=== PATIENT | female | born 1970 | race Caucasian/White ===

== ENCOUNTER → 2020-03-05 15:15 | Outpatient (BNVA) | payer OTHER, SELFPAY | PROVIDERS: Family Provider Internal Medicine; PCP Internal Medicine; Visit Provider Internal Medicine Rheumatology | DX: L40.50 Arthropathic psoriasis, unspecified (principal); Z79.899 Other long term (current) drug therapy; L40.0 Psoriasis vulgaris; R76.8 Other specified abnormal immunological findings in serum | CPT/HCPCS: 99214 ==

== ENCOUNTER 2021-02-19 11:42 | Outpatient (CLI) | payer OTHER, SELFPAY ==
[2021-02-19 13:34] LABS: Basophils % 0.3 %; Eosinophils # 0.1 10^3/uL (0.0-0.8); Eosinophils % 2.2 %; Hemoglobin 12.7 g/dL (11.5-15.3); Lymphocytes # 2.6 10^3/uL (0.8-4.8); Lymphocytes % 44.1 %; Mean Corpuscular HGB Conc 33.4 g/dL (30.0-36.0); Mean Corpuscular Hemoglobin 31.8 pg (28.0-34.0); Mean Corpuscular Volume 95.2 fL (81-99); Mean Platelet Volume 9.3 fL (7.4-10.4); Monocytes # 0.5 10^3/uL (0.2-0.9); Monocytes % 7.9 %; Neutrophils # 2.71 10^3/uL (1.8-7.7); Neutrophils % 45.3 %; Nucleated Red Blood Cells % 0 %; Platelet Count 186 10^3/cmm (130-400); Red Blood Count 3.99 10^6/uL (4.1-5.3); Red Cell Distribution Width 12.5 % (12.1-15.1)
[2021-02-19 13:54] LABS: Alanine Aminotransferase 99 U/L (0-33); Albumin Level 4.2 g/dL (3.5-5.2); Alkaline Phosphatase 36 IU/L (35-105); Aspartate Amino Transferase 82 U/L (0-32); C Reactive Protein 1.1 mg/L (0.0-4.9); Globulin 2.8 g/dL (1.3-4.6); Glomerular Filtration Rate 131.7 mL/min (90-130); Total Bilirubin 0.4 mg/dL (0.15-1.2)
[2021-02-20 14:32] LABS: Hepatitis B Virus DNA <10 NOT DETECTED IU/mL (NOT DETECTED); Hepatitis B Virus DNA PCR <1.00 NOT DETECTED Log IU/mL (NOT DETECTED)
== END 2021-02-19 11:43 | disposition home or self-care (01) ==
PROVIDERS: Visit Provider Internal Medicine Rheumatology
DX: L40.50 Arthropathic psoriasis, unspecified (principal); M19.90 Unspecified osteoarthritis, unspecified site; Z79.899 Other long term (current) drug therapy; Z11.59 Encounter for screening for other viral diseases
CPT/HCPCS: 36415; 80076; 82565; 85025; 86140; 87517

== ENCOUNTER → 2021-03-04 08:36 | Outpatient (BNVA) | payer OTHER, SELFPAY | PROVIDERS: PCP Internal Medicine; Visit Provider Internal Medicine Rheumatology | DX: L40.50 Arthropathic psoriasis, unspecified (principal); L40.0 Psoriasis vulgaris; R76.8 Other specified abnormal immunological findings in serum; Z79.899 Other long term (current) drug therapy; Z11.59 Encounter for screening for other viral diseases; R74.01 Elevation of levels of liver transaminase levels; Z71.89 Other specified counseling | CPT/HCPCS: 99214 ==

== ENCOUNTER 2021-04-22 11:03 | Outpatient (CLI) | payer OTHER, SELFPAY ==
[2021-04-22 12:15] LABS: Basophils % 0.4 %; Eosinophils # 0.2 10^3/uL (0.0-0.8); Eosinophils % 2.7 %; Hematocrit 37.5 % (37.0-47.0); Hemoglobin 12.4 g/dL (11.5-15.3); Lymphocytes # 2.5 10^3/uL (0.8-4.8); Lymphocytes % 45.1 %; Mean Corpuscular HGB Conc 33.1 g/dL (30.0-36.0); Mean Corpuscular Hemoglobin 32.3 pg (28.0-34.0); Mean Corpuscular Volume 97.7 fl (81-99); Mean Platelet Volume 9.3 fL (7.4-10.4); Monocytes # 0.5 10^3/uL (0.2-0.9); Monocytes % 8.5 %; Neutrophils # 2.36 10^3/uL (1.8-7.7); Neutrophils % 42.9 %; Nucleated Red Blood Cells % 0 %; Platelet Count 203 10^3/cmm (130-400); Red Blood Count 3.84 10^6/uL (4.1-5.3); Red Cell Distribution Width 12.2 % (12.1-15.1); White Blood Count 5.5 10^3/uL (4.0-10.0)
[2021-04-22 12:36] LABS: Alanine Aminotransferase 111 U/L (0-33); Albumin Level 4.2 g/dL (3.5-5.2); Alkaline Phosphatase 40 IU/L (35-105); Aspartate Amino Transferase 73 U/L (0-32); C Reactive Protein 2.7 mg/L (0.0-4.9); Globulin 3.3 g/dL (1.3-4.6); Glomerular Filtration Rate 131.7 mL/min (90-130); Total Bilirubin 0.2 mg/dL (0.15-1.2); Total Protein 7.5 g/dL (6.6-8.7)
[2021-04-22 13:07] LABS: Hepatitis B Surface AB < 3.5 (11.5-1000)
== END 2021-04-22 11:04 | disposition home or self-care (01) ==
LOC: LAB 11:07
PROVIDERS: PCP Internal Medicine; Visit Provider Internal Medicine Rheumatology
DX: L40.0 Psoriasis vulgaris (principal); L40.50 Arthropathic psoriasis, unspecified; R76.8 Other specified abnormal immunological findings in serum; Z79.899 Other long term (current) drug therapy; Z11.59 Encounter for screening for other viral diseases
CPT/HCPCS: 36415; 80076; 82565; 85025; 86140; 86706

== ENCOUNTER 2021-11-26 09:25 | Outpatient (CLI) | payer OTHER, SELFPAY ==
[2021-11-26 10:15] LABS: Basophils % 0.4 %; Eosinophils # 0.1 10^3/uL (0.0-0.8); Eosinophils % 2.3 %; Hematocrit 38.3 % (37.0-47.0); Hemoglobin 12.5 g/dL (11.5-15.3); Lymphocytes # 2.4 10^3/uL (0.8-4.8); Lymphocytes % 45.7 %; Mean Corpuscular HGB Conc 32.6 g/dL (30.0-36.0); Mean Corpuscular Hemoglobin 31.3 pg (28.0-34.0); Mean Platelet Volume 10.1 fL (7.4-10.4); Monocytes # 0.5 10^3/uL (0.2-0.9); Monocytes % 9.7 %; Neutrophils # 2.13 10^3/uL (1.8-7.7); Neutrophils % 41.5 %; Nucleated Red Blood Cells % 0.4 %; Platelet Count 217 10^3/cmm (130-400); Red Blood Count 3.99 10^6/uL (4.1-5.3); Red Cell Distribution Width 12.6 % (12.1-15.1); White Blood Count 5.1 10^3/uL (4.0-10.0)
[2021-11-26 10:35] LABS: Alanine Aminotransferase 56 U/L (0-33); Albumin Level 4.5 g/dL (3.5-5.2); Alkaline Phosphatase 38 IU/L (35-105); Aspartate Amino Transferase 58 U/L (0-32); Globulin 3.1 g/dL (1.3-4.6); Glomerular Filtration Rate 131.1 mL/min (90-130); Total Bilirubin 0.3 mg/dL (0.15-1.2); Total Protein 7.6 g/dL (6.6-8.7)
== END 2021-11-26 09:26 | disposition home or self-care (01) ==
PROVIDERS: PCP Internal Medicine; Visit Provider Internal Medicine Rheumatology
DX: L40.50 Arthropathic psoriasis, unspecified (principal); Z79.899 Other long term (current) drug therapy
CPT/HCPCS: 80076; 82565; 85025; 86140

== ENCOUNTER → 2022-07-07 08:04 | Outpatient (BNVA) | payer OTHER, SELFPAY | PROVIDERS: PCP Internal Medicine; Visit Provider Family Medicine | DX: Z76.89 Persons encountering health services in other specified circumstances (principal); I10 Essential (primary) hypertension; E78.2 Mixed hyperlipidemia; Z79.899 Other long term (current) drug therapy; L40.50 Arthropathic psoriasis, unspecified; L40.0 Psoriasis vulgaris; J45.909 Unspecified asthma, uncomplicated | CPT/HCPCS: 80053; 80061; 82043; 83036; 84443; 85025; 86480 ==

== ENCOUNTER → 2022-12-30 07:35 | Outpatient (BNVA) | payer OTHER, SELFPAY | PROVIDERS: PCP Family Medicine; Visit Provider Family Medicine | DX: E11.65 Type 2 diabetes mellitus with hyperglycemia (principal); E78.2 Mixed hyperlipidemia; I10 Essential (primary) hypertension | CPT/HCPCS: 80053; 80061; 82043; 83036 ==

== ENCOUNTER 2023-01-27 07:32 | Outpatient (CLI) | payer OTHER, SELFPAY ==
--- NOTE | 2023-01-27 07:35 | MM_ITS ---
WS: [id number] VIEWS: MLO and CC views both breasts. 3D digital tomosynthesis is also included in this exam. Comparison made with prior exam of 08/06/2015, 12/27/2017, 06/04/2019,. Findings: There was no sign of mass, architectural distortion or suspicious calcification in either breast. Th e breasts are heterogeneously dense, which may obscure small masses MM/[place] [id number] Impression: BI-RADS: 2-Benign finding FOLLOW-UP: 1 Year Follow-up This mammogram was also analyzed by the Computer Aided Detection System R2 Imag e Director Environmental.
== END 2023-01-27 07:33 | disposition home or self-care (01) ==
PROVIDERS: PCP Family Medicine; Visit Provider Family Medicine
DX: Z12.31 Encounter for screening mammogram for malignant neoplasm of breast (principal)
CPT/HCPCS: 77063; 77067

== ENCOUNTER → 2023-03-02 09:30 | Outpatient (BNVA) | payer OTHER, SELFPAY | PROVIDERS: PCP Family Medicine; Visit Provider Obstetrics & Gynecology | DX: Z00.00 Encounter for general adult medical examination without abnormal findings (principal) | CPT/HCPCS: 87624 ==

== ENCOUNTER → 2024-01-08 07:34 | Outpatient (BNVA) | payer OTHER, SELFPAY | PROVIDERS: PCP Family Medicine; Visit Provider Family Medicine | DX: E11.9 Type 2 diabetes mellitus without complications (principal); E11.65 Type 2 diabetes mellitus with hyperglycemia; I10 Essential (primary) hypertension; E78.2 Mixed hyperlipidemia | CPT/HCPCS: 80053; 80061; 82607; 83036; 84443 ==

== ENCOUNTER → 2024-01-28 10:51 | Outpatient (BNVA) | payer OTHER, SELFPAY | PROVIDERS: PCP Family Medicine; Visit Provider Emergency Medicine | DX: N39.0 Urinary tract infection, site not specified (principal) | CPT/HCPCS: 81000; 87077; 87086; 87184 ==

== ENCOUNTER 2024-08-25 13:31 | Emergency (ER) | payer OTHER, SELFPAY ==
[2024-08-25 13:31] VITALS: BP 147/98; PULSE 78; RESP 16; TEMP 36.7; O2SAT 98; BMI 31.9
--- NOTE | 2024-08-25 13:37 | XRR_ITS ---
PROCEDURE INFORMATION: Exam: XR Left Ankle Exam date and time: 08/25/2024 1:48 PM Age: 54 years old Clinical indication: Injury or trauma; Other: Lt ankle/foot pain; Patient HX: Lt ankle pain post fall; Obvious deformity; HX lt foot orif TECHNIQUE: Imaging protocol: Radiologic exam of the left ankle. Views: 3 or more views. COMPARISON: CR XR foot LT min 3V* [id number] 10/03/2018 8:20 AM FINDINGS: Bones/joints: There is a comminuted trimalleolar fracture dislocation left ankle. Comminuted oblique displaced fracture of the distal shaft of the fibula. There is a comminuted displaced fracture of the medial malleolus, there is a comminuted displaced longitudinal fracture of the posterior malleolus. There mammography is anterior subluxation of the tibia in relation to the talus. A bone spur is present at the inferior calcaneus. malleolus. Soft tissues: Unremarkable XR/XR ankle LT min 3V* [id number] IMPRESSION: 1. Comminuted trimalleolar fracture dislocation 2. Orthopedic hardware present in the 1st metatarsal 3. Unremarkable soft tissues malleolus.
--- NOTE | 2024-08-25 13:40 | XRR_ITS ---
PROCEDURE INFORMATION: Exam: XR Left Foot Exam date and time: 08/25/2024 1:49 PM Age: 54 years old Clinical indication: Injury or trauma; Prior surgery; Surgery date: 6+ months; Patient HX: Lt ankle pain post fall; Obvious deformity; HX lt foot orif TECHNIQUE: Imaging protocol: Radiologic exam of the left foot. Views: 3 or more views. COMPARISON: CR XR foot LT min 3V* [id number] 10/03/2018 8:20 AM FINDINGS: Bones/joints: There are transverse displaced fractures proximal shaft 2nd and 3rd metatarsal. There is ORIF with metallic plate and screws in the distal 1st metatarsal and proximal phalanx of the great toe. Transverse hairline fracture proximal shaft 4th metatarsal Chronic osteoarthritis is seen with the narrowing of the metatarsophalangeal articulations 2nd through 5th digits. There is trimalleolar fracture dislocation of the ankle. Bone spur inferior calcaneus. Soft tissues: Soft tissue edema is seen in the anterior aspect of the ankle XR/XR foot LT min 3V* [id number] IMPRESSION: 1. Transverse displaced fracture proximal shaft 2nd and 3rd metatarsal. 2. ORIF distal 1st metatarsal and great toe. 3. Osteoarthritis of the distal aspect of the foot 4. Transverse hairline fracture proximal shaft 4th metatarsal. 5. Trimalleolar comminuted fracture dislocation of the ankle
--- NOTE | 2024-08-25 13:42 | W.ED.EXTPRO ---
HPI - Extremity Problem General: Chief complaint: Extremity Injury, Lower Stated complaint: Lft ankle injury Time Seen by Provider: 08/25/24 13:36 Source: patient Mode of arrival: ambulatory Limitations: no limitations History of Present Illness: 54-year-old female states she had slipped in the mud just prior to arrival twisted her left ankle as foot and ankle pain in that left side. She rates her pain a 6 out of 10 has had a hard time bearing weight denies any pain denies any other injuries with the fall states she has had multiple foot surgeries in the past. Associated symptoms: Deny chest pain, fever(s) or rash Related Data Home Medications Medication Instructions Recorded Confirmed adalimumab 40 mg/0.8 mL 40 mg SUBCUT Q14D 08/25/24 08/25/24 subcutaneous pen kit (Humira Pen) aspirin 81 mg tablet,delayed 81 mg PO DAILY 08/25/24 08/25/24 release atorvastatin 40 mg tablet 40 mg PO DAILY 08/25/24 08/25/24 empagliflozin 25 mg tablet 25 mg PO DAILY 08/25/24 08/25/24 (Jardiance) losartan 25 mg tablet 25 mg PO DAILY 08/25/24 08/25/24 metformin 1,000 mg tablet 1,000 mg PO BID 08/25/24 08/25/24 Previous Rx's Medication Instructions Recorded diabetic supplies, miscellan. #100 ea 01/09/24 tirzepatide 5 mg/0.5 mL 5 mg (0.5 mL) SUBCUT .q7days #2 mL 06/25/24 subcutaneous pen injector (Mounjaro) Allergies Allergy/AdvReac Type Severity Reaction Status Date / Time No Known Allergies Allergy Verified 08/25/24 13:37 Review of Systems Const: Denies: fever(s), chills, body aches or change in appetite ENMT: Denies: throat pain or dental pain Card: Denies: chest pain Resp: Denies: dyspnea GI: Denies: abdominal pain, nausea, vomiting or diarrhea Musc: Reports: extremity pain; Denies: neck pain or back pain Skin/Breast: Denies: rash Neuro: Denies: headache(s) PFSH ED PFSH: Medical History Immunization counseling High risk medication use Hepatitis B core antibody positive Psoriatic arthritis Plaque psoriasis In remission Diabetes mellitus Surgical History History of tonsillectomy History of tubal ligation Family History Other Adopted Social History Smoking and tobacco/nicotine status: never used tobacco/nicotine Second hand smoke exposure: No Alcohol intake: never Substance/Drug Use: never Adopted: Yes Caregiver/support person: No Lives independently: Yes Household members: spouse Current occupational status: employed Current occupational exposures/hazards: No Pets and animals: No Do you think of yourself as: Straight/Heterosexual Current gender identity: Female Female Reproductive History: Date of last menstrual period: 08/19/24 Spontaneous abortions: No Physical Exam Const: COMMON NORMALS: no acute distress, patient oriented x3 and healthy appearing HENMT: COMMON NORMALS: normocephalic and atraumatic HEAD & SCALP: normocephalic and atraumatic Eye: COMMON NORMALS: conjunctivae normal CONJUNCTIVA: Yes conjunctivae normal Neck/C-Spine: COMMON NORMALS: full ROM and supple Chest: COMMONS NORMALS: normal inspection of the chest Resp: COMMON NORMALS: normal respiratory effort Cardio: COMMON NORMALS: regular rate RATE: regular rate Extremity: COMMON NORMALS: full ROM NARRATIVE EXTREMITY EXAM: Tenderness swelling noted to left ankle Neuro: COMMON NORMALS: patient oriented x3, moves all extremities and no focal motor deficits Psych: COMMON NORMALS: mental status grossly normal, Normal thought process present and cooperative THOUGHT PROCESS: Normal thought process present Skin: COMMON NORMALS: no rashes or lesions noted and no wounds GENERAL SKIN EXAM: no rashes or lesions noted Procedures Orthopedic Fracture Reduction Fracture #1: Time Out Performed: Yes Side: left Fracture Reduction Location: other (ankle) Analgesia: procedural sedation Technique: direct manipulation Post Reduction X-rays Demonstrate: anatomical reduction Post-reduction neuro exam: intact Post-reduction vascular exam: intact Splint Applied: Yes Patient Tolerated Procedure: well Procedural Sedation Indication: fracture/dislocation reduction ASA Class: I Time of Last PO Intake: 10:00 Preparation: quality assurance monitor body applied and pulse oximeter IV Propofol dose (mg): 80 Course Vital Signs: Vital signs: Vital Signs Temperature 98.1 F 08/25/24 13:31 Pulse Rate 68 12/29/24 14:05 Respiratory Rate 16 08/25/24 14:05 Blood Pressure 160/88 08/25/24 14:05 Pulse Oximetry 99 08/25/24 14:05 Oxygen Delivery Me thod Room Air 08/25/24 13:31 MDM - Extremity (Nontraumatic) Medical Decision Making Patient presents here with ankle fracture did sedate her and relocate the fracture she is in a splint she is to be nonweightbearing is crutches we will get her follow-up with podiatry. Medical Records I reviewed the patient's medical records. All radiology interpretation(s) finalized by discharge Discharge Plan Discharge Patient Disposition: Home Clinical Impression: Ankle fracture Qualifiers: Encounter type: initial encounter Fracture type: closed Laterality: left Qualified Code(s): S82.892A - Other fracture of left lower leg, initial encounter for closed fracture Condition: Stable Prescriptions: No Action (DME) diabetic supplies, miscellan. Misc See Rx Instructions .ROUTE .MEDSUPPLY Qty: 100 5RF Rx Instructions: Glucometer, test strips, lancets, solution, any other necessary materials. Mounjaro 5 mg/0.5 mL pen injector 5 mg SUBCUT .q7days Qty: 2 2RF atorvastatin 40 mg tablet 40 mg PO DAILY Rx Instructions: TAKE ONE TABLET BY MOUTH DAILY aspirin 81 mg tablet,delayed release (DR/EC) 81 mg PO DAILY metformin 1,000 mg tablet 1,000 mg PO BID Rx Instructions: TAKE 1 TABLET BY MOUTH TWICE DAILY losartan 25 mg tablet 25 mg PO DAILY Rx Instructions: TAKE ONE TABLET BY MOUTH DAILY Humira Pen 40 mg/0.8 mL pen injector kit 40 mg SUBCUT Q14D Rx Instructions: INJECT 40 MG (0.8 ML) SUBCUTANEOUSLY EVERY 14 DAYS 340B if not affordable. Jardiance 25 mg tablet 25 mg PO DAILY Rx Instructions: TAKE 1 TABLET BY MOUTH EVERY DAY Discharge Orders: Discharge ED (Routine); Ordered 08/25/24 Ordered By: Sarah Loyd Referrals: Nikos Arvizu DO [Primary Care Provider] - Clint Givens DPM [Physician] - 4-7 days Discharge Diet: Advance as tolerated Discharge Activity: Resume usual activity Patient Instructions: Ankle Fracture (ED), Opioid Safety Coding Level of Care Code ED Asparagus Buncher for Travong Tip
[2024-08-25] MEDS: ketorolac 60 mg/2 mL INJ IM (14:00)
[2024-08-25 14:05] VITALS: BP 160/88; PULSE 68; RESP 16; O2SAT 99
--- NOTE | 2024-08-25 14:35 | XRR_ITS ---
PROCEDURE INFORMATION: Exam: XR Left Ankle Exam date and time: 08/25/2024 2:31 PM Age: 54 years old Clinical indication: Injury or trauma; Fall; Other: Post reduction TECHNIQUE: Imaging protocol: Radiologic exam of the left ankle. Views: 1 or 2 views. COMPARISON: CR (LOW EXM, ) 08/25/2024 1:48 PM FINDINGS: Bones/joints: There is trimalleolar fracture dislocation of the left ankle status post closed reduction and splint placement. Bones are anatomically aligned. A bone spur is present at the inferior calcaneus. There is metallic plate and screws in the distal 1st metatarsal Soft tissues: The splint obscures the soft tissues. XR/XR ankle LT 2V [id number] IMPRESSION: 1. Trimalleolar fracture dislocation of the ankle status post closed reduction and splint placement. Bones are anatomically aligned 2. Metallic plate and screws in the 1st metatarsal 3. Bone spur inferior calcaneus
--- NOTE | 2024-08-25 14:44 | PC.NURSE ---
HR 82, o2 96% room air, BP 160/88. 1430: Dr. Loyd admin 80 mg propofol, left ankle reduced. 1433: HR 85, o2 98% 2l nc, BP 150/73. 1438: pt aox4, airway patent, unlabored breathing.
[2024-08-25] MEDS: propofol 10 mg/mL SDV 20 mL 100 MG IVP (14:50)
--- NOTE | 2024-08-25 14:51 | PC.NURSE ---
this nurse and Mihaela CARSONN wasted propofol
[2024-08-25] MEDS: TRAMadol 50 mg Tablet PO (15:15)
[2024-08-25 15:21] VITALS: RESP 18; O2SAT 97
[2024-08-25] MEDS: morphine 4 mg/mL SDV 1 mL IVP (15:21)
[2024-08-25] MEDS: ondansetron 2 mg/ML SDV 2 mL 4 MG IVP (15:21)
[2024-08-25 15:36] VITALS: BP 141/71; PULSE 85; O2SAT 97
--- NOTE | 2024-08-26 08:29 | DCPLANNER ---
messaged podiatry for er f/u
== END 2024-08-25 15:38 | disposition home or self-care (01) ==
PROVIDERS: Emergency Provider Emergency Medicine; PCP Family Medicine
DX: S82.892A Other fracture of left lower leg, initial encounter for closed fracture (principal); Z79.82 Long term (current) use of aspirin; Z79.84 Long term (current) use of oral hypoglycemic drugs; E11.9 Type 2 diabetes mellitus without complications
CPT/HCPCS: 27788; 73600; 73610; 73630; 96372; 96374; 96375; 99152; 99285; J1885; J2270; J2405; J2704

== ENCOUNTER 2024-09-02 06:17 | Day surgery (SDC) | payer OTHER, SELFPAY ==
[2024-09-02] VITALS (11 sets, daily range): BP systolic 111–150; BP diastolic 65–95; PULSE 69–81; RESP 14–20; TEMP 36.3–36.6; O2SAT 93–100; BMI 31.9
--- NOTE | 2024-09-02 | XR_ITS ---
WS: [id number] Left ankle, C-arm fluoroscopy views, 09/02/2024 Clinical Data: PRICILLA PICS Comparison: Left ankle, 08/25/2024 Findings: Dr. Givens performed bimalleolar internal fixation of a left ankle fracture. XR/XR ankle LT 2V [id number] Impression: Internal fixation of fracture of the medial malleolus and distal left fibula.
[2024-09-02 06:34] LABS: OR HCG Qualitative Urine Negative (Negative)
[2024-09-02] MEDS: gabapentin 300 mg Capsule PO (06:42)
[2024-09-02] MEDS: sodium chloride 0.9% 1,000 ML 30 ML IV (06:48)
[2024-09-02 06:50] LABS: Glucose Point of Care 128 mg/dL (70-110)
[2024-09-02] MEDS: scopolamine 1.5 Patch 1 PATCH TRANSDERMA (06:54)
[2024-09-02] MEDS: acetaminophen 1,000 MG/100 ML PIGGYBACK 400 MG IV (06:55)
--- NOTE | 2024-09-02 07:05 | W.PM.OPSUD ---
Surgery/Procedure H&P Update DATE OF PROCEDURE: September 02, 2024 DATE H&P PERFORMED: 08/26/24 H&P UPDATE INFORMATION: I have reviewed H&P completed within last 30 days, I have examined patient prior to procedure, No changes to prior documentation and H&P is in [facility] EMR on date indicated PREOP DIAGNOSIS: Left trimalleolar ankle fracture PLANNED PROCEDURE: Operation Date: 09/02/24 08:00 Proposed Procedures p ORIF Ankle ORIF Trimalleolar Fracture(Left) - Clint Givens DPM s Ankle Arthroscopy(Left) - Clint Givens DPM
[2024-09-02] MEDS: ceFAZolin 2,000 mg SDV 2000 MG IVP (07:46)
--- NOTE | 2024-09-02 08:24 | ANES.PREANE2 ---
Pre-Anesthetic Assessment Height/Weight: Height 1.63 m Weight 84.368 kg Temp Pulse Resp BP Pulse Ox O2 Del Method 97.3 F L 74 18 150/95 98 Room Air 09/02/24 06:45 09/02/24 06:45 09/02/24 06:45 09/02/24 06:54 09/02/24 06:45 09/02/24 07:02 Preop Diagnosis: Left trimalleolar ankle fracture Operation Date: 09/02/24 08:00 Proposed Procedures p ORIF Ankle ORIF Trimalleolar Fracture(Left) - Clint Givens DPM s Ankle Arthroscopy(Left) - Clint Givens DPM Familial anesthetic complications: PONV--h/o admission to hospital Was Beta Lino taken within 24 hours: N/A Was Clonidine taken within 24 hours: N/A Last intake: Intake Last Liquid Date 09/01/24 Last Liquid Time 23:30 Last Solid Date 09/01/24 Last Solid Time 18:30 Social No alcohol and No tobacco Exam alert, oriented x 3, clear to auscultation bilaterally and regular rate & rhythm Airway Submandibular: within normal limits Cervical ROM: within normal limits Mallampati: Class II Dentition: full Pulmonary Asthma CV/HEM Hypertension Metabolic Diabetes Mellitus Anesthetic Plan ASA status: 2 Anesthesia: General and Regional (specify below) (left popliteal blk and left adductor blk) Medications/Allergies Home Medications Medication Instructions Recorded Confirmed Last Taken Type diabetic supplies, miscellan. #100 ea 01/09/24 08/26/24 Unknown Rx tirzepatide 5 mg/0.5 mL 5 mg (0.5 mL) SUBCUT .q7days #2 mL 06/25/24 08/26/24 08/20/24 Rx subcutaneous pen injector (Mounjaro) adalimumab 40 mg/0.8 mL 40 mg SUBCUT Q14D 08/25/24 08/29/24 08/15/24 History subcutaneous pen kit (Humira Pen) aspirin 81 mg tablet,delayed 81 mg PO DAILY 08/25/24 08/29/24 09/01/24 History release atorvastatin 40 mg tablet 40 mg PO DAILY 08/25/24 08/29/24 09/01/24 History empagliflozin 25 mg tablet 25 mg PO DAILY 12/29/24 01/02/25 01/05/25 History (Jardiance) losartan 25 mg tablet 25 mg PO DAILY 08/25/24 08/29/24 09/01/24 History metformin 1,000 mg tablet 1,000 mg PO BID 08/25/24 08/29/24 09/01/24 History tramadol 50 mg tablet 50 mg PO Q8H PRN pain #20 tabs 08/25/24 08/29/24 09/01/24 Rx Knee Scooter #1 ea 08/26/24 08/26/24 Unknown Rx hydrocodone 5 mg-acetaminophen 325 1 tab PO Q6H PRN pain #28 tabs 09/02/24 Unknown Rx mg tablet Allergies Allergy/AdvReac Type Severity Reaction Status Date / Time No Known Allergies Allergy Verified 08/25/24 13:37 Current Medications Generic Name Dose Route Start Last Admin Trade Name Freq PRN Reason Stop Dose Admin Sodium Chloride 1,000 mls @ 30 mls/hr 09/02/24 06:30 09/02/24 08:23 Sodium Chloride 0.9% IV 09/03/24 06:29 Infused .Q24H NEISHA Infusion PFSH Anesthesia Medical History Immunization counseling High risk medication use Hepatitis B core antibody positive Psoriatic arthritis Plaque psoriasis In remission Diabetes mellitus Surgical History History of tonsillectomy History of tubal ligation Family History Other Adopted Social History Smoking and tobacco/nicotine status: never used tobacco/nicotine Second hand smoke exposure: No Alcohol intake: never Substance/Drug Use: never Adopted: Yes Caregiver/support person: No Lives independently: Yes Household members: spouse Current occupational status: employed Current occupational exposures/hazards: No Pets and animals: No Do you think of yourself as: Straight/Heterosexual Current gender identity: Female Female Reproductive History Spontaneous abortions: No Data Anesthesia Cardiac Studies: No Data to Display Anesthesia Procedures Nerve Block Nerve Block 1: Main Anesthesia: general anesthesia Consent: requested by attending/covering physician, from patient, risks and benefits reviewed and patient agrees to proceed Nerve block location: adductor canal (left) and popliteal (left) Anesthesia monitors applied: pulse oximetry, EKG, BP cuff and oxygen Nerve block position: supine Anesthetic Used: ropivicaine 0.5% Amount of anesthesia used (mL): 40 Ultrasound used to: recognize landmarks Nerve Stimulator Used?: Yes (for popliteal) Interscalene/Femoral BLK: 4 stimuplex 21 g needle used for position and inplane approach Injection: neg aspiration of heme Patient Tolerated Procedure: well
--- NOTE | 2024-09-02 09:19 | P.BOP_ITS ---
Date of procedure: 09/02/2024 Surgeon name: Arash ZhangPKaveh Bindery Supervisor(s) name(s): Benny Hutchison Procedure(s) performed: ORIF left trimalleolar ankle Description of findings: Left trimalleolar ankle Estimated blood loss: 5 cc Tourniquet time: 60-minute Specimen(s) removed: None Post-operative diagnosis: Left trimalleolar ankle fracture
--- NOTE | 2024-09-02 09:20 | P.OP_ITS ---
Operative Report Date of procedure: September 02, 2024 Surgeon: Clint Givens DPM Procedure: Date of procedure: 09/02/2024 Pre-op diagnosis: Left trimalleolar ankle fracture Post-op diagnosis: Same Post-op findings: Left trimalleolar ankle fracture Procedure done: ORIF left trimalleolar ankle fracture CPT 18901 Implants: One third tubular plate with locking and nonlocking 3.5 screws. One 3.5 mm headed short threaded compression screw [employer] medical Specimens removed: None Surgeon: Dr. Clint Givens DPM Recreation Leader: Benny Hutchison Estimated blood loss: 5 cc Tourniquet time: 60 minutes Complications: None Patient is a 54-year-old female that has a history of left trimalleolar ankle fracture. The inherent stability of the fracture pattern necessitates open reduction internal fixation. A discussion regarding the procedure, including risks and complications has been had with the patient and is noted in the recent clinic note. Written and verbal consent have been obtained. All patient questions have been answered to the patient?s satisfaction. No written or verbal guarantees have been given or implied. The patient has been NPO since midnight. The history has been reviewed and the history and physical is current. The signed consent was confirmed and placed in the patient chart. Patient imaging has been reviewed and is consistent with the diagnosis. Under mild sedation, the patient was brought into the operating room and placed on the table in the supine position. IV antibiotics were given by the anesthesia team as preoperative surgical prophylaxis. General sedation was then performed by the anesthesiateam. A pneumatic tourniquet was then placed about the left thigh. A popliteal block was performed by the anesthesia department. The operative extremity was then prepped and draped in the usual fashion. The ex tremity was then elevated and exsanguinated before the tourniquet was inflated to 325 mmHg. After inflation, the following procedure was then performed. Attention was directed to the lateral aspect of the left ankle where a 10 cm incision was made using a #15 blade. Dissection was carried down through subcutaneous the superficial fascia to the level of the distal fibular fracture. Periosteum was incised using a #15 blade and reflected to expose the fracture site. Hematoma formation was noted within the fracture. This was removed with a combination of rongeur and curette. Site was irrigated before the distal fibula was reduced to an appropriate anatomic position. A one third tubular plate was then positioned on the posterior lateral aspect of the fibula in antiglide fashion. The holes of the plate were drilled and filled per the manufacture protocol with combination of locking and nonlocking 3.5 screws. Good positioning of the plate and screws was noted. Attention was directed to the medial aspect of the ankle where K wire was driven percutaneously across the medial malleolar fracture. This was visualized on fluoroscopy. Good position of the wire was noted. 15 blade was used to make a stab incision around the wire. Blunt dissection was carried down to the level of bone with mosquito hemostat. A 3.5 headed partially-threaded screw from [employer] was then inserted over the wire across fracture site. Good positioning of hardware was noted and good anatomic reduction of fractures was visualized. All incisions were irrigated with sterile saline before attention was directed to closure. Deep tissue was closed with 3-0 Vicryl followed by subcuticular closure with 4-0 Vicryl and skin closure with 3-0 nylon. The tourniquet was let down good hyperemic response was noted to all digits of the left foot. Incision site was dressed with Xeroform, 4 x 4 gauze, Kerlix, Gareth. Patient was placed in a cam boot. The patient tolerated the procedure and anesthesia well and without complication. The patient was transported from the operating room to the recovery room with vital signs stable and vascular status intact to all digits of the left foot. The patient was given both written and verbal instructions to remain nonweightbearing to the operative extremity, to keep dressings/splint clean, dry and intact and to take pain medication as directed. The patient will follow-up in the outpatient setting at their scheduled appointment. The patient was discharged with my personal number and was instructed to call if any questions or issues should arise. They were discharged home once anesthesia criteria was met.
--- NOTE | 2024-09-02 12:14 | ANE.PACU2 ---
Inpatient post-anesthesia follow up: Airway intact: Yes Vital signs: Temperature 97.4 F Pulse Rate 74 Respiratory Rate 20 Blood Pressure 132/78 Pulse Oximetry 100 Oxygen Delivery Me thod Room Air Oxygen Flow Rate Fraction of Inspir ed Oxygen Hydration adequate: Yes Nausea and vomiting: No Pain level: 1 Mental status: Baseline
== END 2024-09-02 10:40 | disposition home or self-care (01) ==
PROVIDERS: Anesthesiology; PCP Family Medicine; Visit Provider Podiatrist Foot & Ankle Surgery
PROC: (CPT 27822; principal; 2024-09-02 08:00)
DX: S82.852A Displaced trimalleolar fracture of left lower leg, initial encounter for closed fracture (principal); X50.1XXA Overexertion from prolonged static or awkward postures, initial encounter; J45.909 Unspecified asthma, uncomplicated; I10 Essential (primary) hypertension; E11.9 Type 2 diabetes mellitus without complications; Z68.31 Body mass index [BMI] 31.0-31.9, adult; Z79.82 Long term (current) use of aspirin; E03.9 Hypothyroidism, unspecified; Z79.84 Long term (current) use of oral hypoglycemic drugs
CPT/HCPCS: 27822; 36416; 73600; 76000; 81025; 82962; C1713; J0131; J0690; J1100; J2250; J2405; J2704; J2795; J3010; J7030

== ENCOUNTER → 2024-09-17 16:05 | Outpatient (BNVA) | payer OTHER, SELFPAY | PROVIDERS: PCP Family Medicine; Visit Provider Podiatrist Foot & Ankle Surgery | DX: S82.852A Displaced trimalleolar fracture of left lower leg, initial encounter for closed fracture (principal); X58.XXXA Exposure to other specified factors, initial encounter | CPT/HCPCS: 73610 ==

== ENCOUNTER → 2024-10-07 14:29 | Outpatient (BNVA) | payer OTHER, SELFPAY | PROVIDERS: PCP Family Medicine; Visit Provider Podiatrist Foot & Ankle Surgery | DX: S82.852D Displaced trimalleolar fracture of left lower leg, subsequent encounter for closed fracture with routine healing (principal); Z98.890 Other specified postprocedural states; X58.XXXD Exposure to other specified factors, subsequent encounter | CPT/HCPCS: 73610 ==

== ENCOUNTER → 2024-10-23 12:58 | Outpatient (BNVA) | payer OTHER, SELFPAY | PROVIDERS: PCP Family Medicine; Visit Provider Podiatrist Foot & Ankle Surgery | DX: S82.852D Displaced trimalleolar fracture of left lower leg, subsequent encounter for closed fracture with routine healing (principal); Z98.890 Other specified postprocedural states; X58.XXXD Exposure to other specified factors, subsequent encounter | CPT/HCPCS: 73610 ==

== ENCOUNTER → 2024-11-07 12:50 | Outpatient (BNVA) | payer OTHER, SELFPAY | PROVIDERS: PCP Family Medicine; Visit Provider Podiatrist Foot & Ankle Surgery | DX: S82.852D Displaced trimalleolar fracture of left lower leg, subsequent encounter for closed fracture with routine healing (principal); X58.XXXD Exposure to other specified factors, subsequent encounter; Z98.890 Other specified postprocedural states | CPT/HCPCS: 73610 ==

== ENCOUNTER 2024-11-07 13:26 | Outpatient (CLI) | payer OTHER, SELFPAY | END 2024-11-07 13:27 | disposition home or self-care (01) | LOC: SPT 13:27 | PROVIDERS: PCP Family Medicine; Visit Provider Podiatrist Foot & Ankle Surgery | DX: Z46.89 Encounter for fitting and adjustment of other specified devices (principal); S82.852D Displaced trimalleolar fracture of left lower leg, subsequent encounter for closed fracture with routine healing; X58.XXXD Exposure to other specified factors, subsequent encounter | CPT/HCPCS: L1902 ==

== ENCOUNTER 2024-11-16 18:04 | Emergency (ER) | payer OTHER, SELFPAY ==
[2024-11-16 18:06] VITALS: BP 171/83; PULSE 86; RESP 16; TEMP 36.7; O2SAT 97; BMI 33.1
--- NOTE | 2024-11-16 18:43 | XRR_ITS ---
PROCEDURE INFORMATION: Exam: XR Chest Exam date and time: 11/16/2024 6:59 PM Age: 54 years old Clinical indication: Chest pressure; Chest pain; HTN; Weakness; Dizziness; Additional info: Chest pain/ HTN TECHNIQUE: Imaging protocol: Radiologic exam of the chest. Views: 2 views. COMPARISON: CR XR chest 2V* [id number] 07/17/2019 11:33 AM FINDINGS: Lungs: Unremarkable. No consolidation. Pleural spaces: Unremarkable. No pleural effusion. No pneumothorax. Heart/Mediastinum: Unremarkable. No cardiomegaly. Bones/joints: Unremarkable. XR/XR chest 2V* [id number] IMPRESSION: No acute findings.
--- NOTE | 2024-11-16 18:43 | CTR_ITS ---
PROCEDURE INFORMATION: Exam: CT Head Without Contrast Exam date and time: 11/16/2024 7:10 PM Age: 54 years old Clinical indication: C/O dizziness with hypertension; Additional info: Vertigo with HTN TECHNIQUE: Imaging protocol: Computed tomography of the head without contrast. Radiation optimization: All CT scans at this facility use at least one of these dose optimization techniques: automated exposure control; mA and/or kV adjustment per patient size (includes targeted exams where dose is matched to clinical indication); or iterative reconstruction. COMPARISON: No relevant prior studies available. RADIATION DOSE METRICS: Total DLP (mGy-cm): 1013.18 FINDINGS: Brain: Normal. No hemorrhage. Unremarkable white matter. No mass effect. Cerebral ventricles: No ventriculomegaly. Paranasal sinuses: Visualized sinuses are unremarkable. No fluid levels. Mastoid air cells: Visualized mastoid air cells are well aerated. Bones: Unremarkable. No acute fracture. Soft tissues: Unremarkable. CT/CT head wo con* [id number] IMPRESSION: No acute intracranial abnormality.
--- NOTE | 2024-11-16 18:46 | ECG_ITS ---
[facility] Test Date: 2024-11-16 Pat Name: Dalila Knight Department: Room: Gender: Female Post Partum Nurse: : 1970 Requested By: Prabhjot Hatch Order Number: [id number] Omar MD: Blair West M.D. Measurements Intervals Anita Rate: 79 P: 46 MT: 166 QRS: 24 QRSD: 94 T: 44 QT: 380 QTc: 436 Interpretive Statements SINUS RHYTHM LOW QRS VOLTAGE IN PRECORDIAL LEADS [QRS DEFLECTION < 1.0 mV IN CHEST LEADS] SEPTAL MYOCARDIAL INFARCTION , OF INDETERMINATE AGE [40+ ms Q WAVE IN V1/V2] No previous ECG available for comparison Electronically Signed On 11-17-2024 22:42:29 CDT by Blair West M.D. [email or web address]
--- NOTE | 2024-11-16 18:50 | ED_ITS ---
HPI - General Adult 2 General: Chief complaint: General Medical Stated complaint: BP 153/93 Dizzy Nausa L shoulder Pain Time Seen by Provider: 11/16/24 18:13 History of Present Illness: 54-year-old female presents to the ER [facility] complaint of high blood pressure concerns in which she now she developed left-sided shoulder pain and arm pain rating down the arm patient denies any known history of underlying heart issues. Patient does report having a known history of high blood pressure that she takes medication for including losartan patient denies any recent medications to her high blood pressure medication regimen recently she does endorse recent to return to duty after having a foot fracture she sustained in July patient denies any recent changes to her pain as she does endorses prior to arrival earlier today she did develop some dizziness with vertigo as well as a high blood pressure in which it was recommend by the patient's and daughter in law for her to come in as her symptoms have been ongoing since early this morning for over 10 hours. Patient presents to the ER for these symptoms, the patient denies any current actual chest pain or shortness of breath reporting generalized dizziness with vertigo with some moderate nausea. Patient denies taking anything for this prior to arrival. Associated symptoms: Reports chest pain and malaise; Deny dyspnea, headache(s), nausea, rash, palpitations or vomiting Related Data Home Medications ?Medication ?Instructions ?Recorded ?Confirmed adalimumab 40 mg/0.8 mL 40 mg SUBCUT Q14D 08/25/24 0 11/07/24 subcutaneous pen kit (Humira Pen) aspirin 81 mg tablet,delayed 81 mg PO DAILY 08/25/24 0 11/07/24 release empagliflozin 25 mg tablet 25 mg PO DAILY 08/25/24 (Jardiance) losartan 25 mg tablet 25 mg PO DAILY 08/25/2410/26 metformin 1,000 mg tablet 1,000 mg PO BID 08/25/24 Previous Rx's ?Medication ?Instructions ?Recorded diabetic supplies, miscellan. #100 ea 01/09/24 tramadol 50 mg tablet 50 mg PO Q8H PRN pain #20 ta bs 08/25/24 Knee Scooter #1 ea 08/26/24 oxycodone-acetaminophen 10 mg-325 1 tab PO Q6H PRN anna n 5 days #20 09/03/24 mg tablet tabs tramadol 50 mg tablet 50 mg PO Q6H PRN pain #16 ta bs 09/06/24 tirzepatide 5 mg/0.5 mL See Rx Instructions .Route 0 09/09/24 subcutaneous pen injector .COMPLEX #2 mL (Mounjaro) atorvastatin 40 mg tablet See Rx Instructions .Route 0 10/07/24 .COMPLEX #90 tabs ASO Brace #1 ea 11/07/24 hydrochlorothiazide 25 mg tablet 25 mg PO DAILY #14 ta bs 11/16/24 Allergies Allergy/AdvReac Type Severity Reaction Status Date / Time No Known Allergies Allergy Verified 11/07/24 12:51 Review of Systems 2 General: Reports: 10 or more systems reviewed and unremarkable except in HPI and below Const: Reports: fatigue and malaise; Denies: fever(s) or chills Eyes: Denies: change in vision or blurry vision Card: Reports: chest pain and other (Left shoulder pain and arm pain); Denies: palpitations Resp: Denies: dyspnea or productive cough GI: Denies: abdominal pain, nausea or vomiting : Denies: flank pain Musc: Denies: extremity pain or extremity swelling Skin/Breast: Denies: rash or pruritus Neuro: Reports: lack of coordination, dizziness and vertigo; Denies: headache(s) Psych: Denies: anxiety or depression Dyllan/Lymph: Denies: easy bleeding All/Imm: Denies: urticaria, throat swelling or facial swelling PFSH ED 2 PFSH: Medical History Immunization counseling High risk medication use Hepatitis B core antibody positive Psoriatic arthritis Plaque psoriasis In remission Diabetes mellitus Surgical History History of tonsillectomy History of tubal ligation Family History Other Adopted Social History Smoking and tobacco/nicotine status: never used tobacco/nicotine Second hand smoke exposure: No Alcohol intake: never Substance/Drug Use: never Adopted: Yes Caregiver/support person: No Lives independently: Yes Household members: spouse Current occupational status: employed Current occupational exposures/hazards: No Pets and animals: No Do you think of yourself as: Straight/Heterosexual Current gender identity: Female Female Reproductive History: Spontaneous abortions: No Physical Exam 2 Const: COMMON NORMALS: no acute distress, patient oriented x3 and healthy appearing HENMT: COMMON NORMALS: normocephalic and atraumatic HEAD & SCALP: n ormocephalic and atraumatic Eye: COMMON NORMALS: Equal, round and reactive pupils present and EOMs intact bilaterally PUPIL: Yes Equal, round and reactive pupils present Neck/C-Spine: COMMON NORMALS: full ROM, supple and no JVD Lymph: LYMPHATIC: no lymphadenopathy noted Chest: COMMONS NORMALS: normal inspection of the chest and normal palpation of entire chest wall Resp: COMMON NORMALS: normal respiratory effort, No retractions and clear to auscultation bilaterally EFFORT & INSPECTION: Yes able to speak in complete sentences and Yes symmetric chest movement AUSCULTATION: clear to auscultation bilaterally Cardio: COMMON NORMALS: no JVD, regular rate and regular rhythm RATE: r egular rate RHYTHM: regular rhythm GI: COMMON NORMALS: Normal to inspection, nondistended, normoactive bowel sounds present, Soft to palpation and non-tender INSPECTION: Yes normal to inspection PALPATION: Yes Soft to palpation : COMMON NORMALS: Yes no CVA tenderness BLADDER/KIDNEY EXAM: Yes no CVA tenderness Back/Pelvis: COMMON NORMALS: no CVA tenderness Extremity: COMMON NORMALS: normal to inspection and full ROM Neuro: COMMON NORMALS: patient oriented x3, CN's II-XII intact bilaterally, moves all extremities and no focal motor deficits Psych: COMMON NORMALS: mental status grossly normal, Normal thought process present, cooperative and normal affect THOUGHT PROCESS: Normal thought process present Skin: COMMON NORMALS: no rashes or lesions noted GENERAL SKIN EXAM: no rashes or lesions noted Course 2 Vital Signs: Vital signs: Vital Signs Temperature 98.1 F 11/16/24 18:06 Pulse Rate 82 11/16/24 19:33 Respiratory Rate 16 11/16/24 19:33 Blood Pressure 152/93 11/16/24 21:32 Pulse Oximetry 96 11/16/24 21:32 Oxygen Delivery Me thod Room Air 11/16/24 18:06 MDM - General Adult Medical Decision Making Due to patient's symptoms and condition lab work and imaging will be obtained will continue to follow patient will be treated as this is a cardiac issues otherwise noted. Patient's blood pressure is quite elevated Patient's cardiac troponins came back unremarkable x 2 unremarkable BNP as well as renal function patient's blood pressure also was improved down to 150 over 80s patient was provided dose of hydrochlorothiazide while emergency department prior to subcu discharged home she is stable for discharge home did advise further follow-up primary care in 3 to 5 days for further evaluation and management as well as to frequently check her blood pressure with pulse rate until that time provided to your primary care doctor and was to return the interim if any of his symptoms persist or worse Lab Data 11/16/24 18:24 11/16/24 18:24 Radiology Impressions Chest X-Ray 11/16/24 18:43 IMPRESSION: No acute findings. Head CT 11/16/24 18: IMPRESSION: No acute intracranial abnormality. Laboratory Results WBC 5.56 10^3/uL (3.29-11.43) 11/16/24 18: RBC 4.56 10^6/uL (3.85-5.65) 11/16/24 18:24 Hgb 13.10 g/dL (11.27-16.99) 11/16/24 18:24 Hct 40.6 % (36-47) 11/16/24 18: MCV 89.0 fl (85-98) 11/16/24 18:24 MCH 28.7 pg (27-33) 11/16/24 18:24 MCHC 32.3 g/dL (30-55) 11/16/24 18:24 RDW 13.8 % (12.1-15.1) 11/16/24 18:24 Plt Count 265 10^3/cmm (157-399) 11/16/24 18:24 MPV 9.7 fL (7.4-10.4) 11/16/24 18:24 Neut % (Auto) 53.2 % 11/16/24 18: Lymph % (Auto) 35.1 % 11/16/24 18:24 Navarro % (Auto) 8.1 % 11/16/24 18:24 Eos % (Auto) 2.7 % 11/16/24 18:24 Baso % (Auto) 0.5 % 11/16/24 18: Neut # (Auto) 2.96 10^3/uL (1.8-7.7) 11/16/24 18:24 Lymph # (Auto) 2.0 10^3/uL (0.8-4.8) 11/16/24 18:24 Navarro # (Auto) 0.5 10^3/uL (0.2-0.9) 11/16/24 18:24 Eos # (Auto) 0.2 10^3/uL (0.0-0.8) 11/16/24 18:24 Baso # (Auto) 0.0 10^3/uL (0.0-0.1) 11/16/24 18:24 Nucleated RBC % (auto) 0 % 11/16/24 18:24 Nucleated RBCs # 0.0 /100WBC 11/16/24 18:24 Sodium 141 mmol/L (136-145) 11/16/24 18:24 Potassium 4.4 mmol/L (3.5-5.1) 11/16/24 18:24 Chloride 104 mmol/L (98-107) 11/16/24 18:24 Carbon Dioxide 24 mmol/L (22-29) 11/16/24 18:24 Anion Gap 17.4 (5-19) 11/16/24 18:24 BUN 11 mg/dL (6-20) 11/16/24 18:24 Creatinine 0.6 mg/dL (0.5-0.9) 11/16/24 18:24 GFR Calculation 105.0 mL/min (90-130) 11/16/24 18:24 Glucose 130 mg/dL (65-115) H 11/16/24 18:24 Calculated Osmolality 293 mOsm/kg (285-295) 11/16/24 18:24 Calcium 9.7 mg/dL (8.5-10.5) 11/16/24 18:24 Total Bilirubin 0.2 mg/dL (0.15-1.2) 11/16/24 18:24 AST 40 U/L (0-32) H 11/16/24 18:24 ALT 60 U/L (0-33) H 11/16/24 18:24 Alkaline Phosphatase 54 U/L (35-105) 11/16/24 18:24 Troponin T Baseline < 6 ng/L (0-10) 11/16/24 18:24 Troponin T 120 Minute 6.00 ng/L (0-10) 11/16/24 19:50 Delta Troponin T 0.38608 ABS# (0-10) 11/16/24 19:50 C-Reactive Protein 3.0 mg/L (0.0-4.9) 11/16/24 18:24 NT-Pro-B Natriuret Pep 40 pg/mL (0-125) 11/16/24 18:24 Total Protein 8.0 g/dL (6.6-8.7) 11/16/24 18:24 Albumin 4.7 g/dL (3.5-5.2) 11/16/24 18:24 Globulin 3.3 g/dL (1.3-4.6) 11/16/24 18:24 Urine Color Yellow (Yellow) 11/16/24 19:35 Urine Appearance Clear (CLEAR) 11/16/24 19:35 Urine pH 7.0 (5-7) 11/16/24 19:35 Ur Specific [place] 1.036 (1.005-1.030) H 11/16/24 19:35 Urine Protein Negative (Negative) 11/16/24 19:35 Urine Glucose (UA) 2+ (Normal) H 11/16/24 19:35 Urine Ketones Negative (Negative) 11/16/24 19:35 Urine Blood Negative (Negative) 11/16/24 19:35 Urine Nitrate Negative (Negative) 11/16/24 19:35 Urine Bilirubin Negative (Negative) 11/16/24 19:35 Urine Urobilinogen 0.2 mg/dL (Negative) 11/16/24 19:35 Ur Leukocyte Esterase Negative (Negative) 11/16/24 19:35 Urine RBC 0-2 /hpf (0-2) 11/16/24 19:35 Urine WBC 0-5 /hpf (0-5) 11/16/24 19:35 Ur Squamous Epith Cells 0-5 /hpf (0-5) 11/16/24 19:35 Amorphous Sediment Not Reportable 11/16/24 19:35 Urine Bacteria None seen /hpf (NONE) 11/16/24 19:35 Hyaline Casts 0-4 /lpf H 11/16/24 19:35 Urine Opiates Screen Negative ng/mL (Negative) 11/16/24 19:35 Ur Barbiturates Screen Negative ng/mL (Negative) 11/16/24 19:35 Ur Phencyclidine Scrn Negative ng/mL (Negative) 11/16/24 19:35 Ur Amphetamines Screen Negative ng/mL (Negative) 11/16/24 19:35 U Benzodiazepines Scrn Negative ng/mL (Negative) 11/16/24 19:35 Urine Cocaine Screen Negative ng/mL (Negative) 11/16/24 19:35 U Marijuana (THC) Screen Negative ng/mL (Negative) 11/16/24 19:35 All radiology interpretation(s) finalized by discharge Discharge Plan Discharge Patient Disposition: Home Clinical Impression: Essential hypertension, Chest pain Condition: Stable Prescriptions: New hydrochlorothiazide 25 mg tablet 25 mg PO DAILY Qty: 14 0RF No Action (DME) diabetic supplies, miscellan. Misc See Rx Instructions .ROUTE .MEDSUPPLY Qty: 100 5RF Rx Instructions: Glucometer, test strips, lancets, solution, any other necessary materials. (DME) Knee Scooter See Rx Instructions .Route .MEDSUPPLY Qty: 1 0RF Rx Instructions: As directed by Home (DME) ASO Brace See Rx Instructions .Route .MEDSUPPLY Qty: 1 0RF Rx Instructions: As directed by [facility] oxycodone-acetaminophen 10-325 mg tablet 1 tab PO Q6H PRN (Reason: pain) 5 Days Qty: 20 0RF tramadol 50 mg tablet 50 mg PO Q6H PRN (Reason: pain) Qty: 16 0RF Mounjaro 5 mg/0.5 mL pen injector See Rx Instructions .ROUTE .COMPLEX Qty: 2 2RF Dose Instruction: inject 5mg (0.5ml) SUBCUTANEOUSLY EVERY 7 DAYS Rx Instructions: inject 5mg (0.5ml) SUBCUTANEOUSLY EVERY 7 DAYS atorvastatin 40 mg tablet See Rx Instructions .ROUTE .COMPLEX Qty: 90 1RF Dose Instruction: TAKE 1 TABLET BY MOUTH EVERY DAY Rx Instructions: TAKE 1 TABLET BY MOUTH EVERY DAY aspirin 81 mg tablet,delayed release (DR/EC) 81 mg PO DAILY metformin 1,000 mg tablet 1,000 mg PO BID Rx Instructions: TAKE 1 TABLET BY MOUTH TWICE DAILY losartan 25 mg tablet 25 mg PO DAILY Rx Instructions: TAKE ONE TABLET BY MOUTH DAILY Humira Pen 40 mg/0.8 mL pen injector kit 40 mg SUBCUT Q14D Rx Instructions: INJECT 40 MG (0.8 ML) SUBCUTANEOUSLY EVERY 14 DAYS 340B if not affordable. Jardiance 25 mg tablet 25 mg PO DAILY Rx Instructions: TAKE 1 TABLET BY MOUTH EVERY DAY tramadol 50 mg tablet 50 mg PO Q8H PRN (Reason: pain) Qty: 20 0RF Discharge Orders: Discharge ED (Routine); Ordered 11/16/24 Ordered By: Prabhjot Hatch Referrals: Nikos Arvizu DO [Primary Care Provider] - 4-7 days Discharge Diet: Cardiac Discharge Activity: Increase activity as tolerated Patient Instructions: Chest Pain (ED), Chronic Hypertension (ED) Activity Restrictions/Additional Instructions: It is advised you to take your blood pressure several times a day record this information and provide your primary care doctor you have been started on some new medications for your high blood pressure you to take this on top of your current medication you are already on .Please further follow-up with primary care in 3 to 5 days for further assessment management and was to return in the interim if any of your symptoms persist or worse. 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
[2024-11-16 18:53] LABS: Basophils % 0.5 %; Eosinophils # 0.2 10^3/uL (0.0-0.8); Eosinophils % 2.7 %; Hematocrit 40.6 % (36-47); Lymphocytes % 35.1 %; Mean Corpuscular HGB Conc 32.3 g/dL (30-55); Mean Corpuscular Hemoglobin 28.7 pg (27-33); Mean Platelet Volume 9.7 fL (7.4-10.4); Monocytes # 0.5 10^3/uL (0.2-0.9); Monocytes % 8.1 %; Neutrophils # 2.96 10^3/uL (1.8-7.7); Neutrophils % 53.2 %; Nucleated Red Blood Cells % 0 %; Platelet Count 265 10^3/cmm (157-399); Red Blood Count 4.56 10^6/uL (3.85-5.65); Red Cell Distribution Width 13.8 % (12.1-15.1); White Blood Count 5.56 10^3/uL (3.29-11.43)
[2024-11-16 19:11] LABS: Alanine Aminotransferase 60 U/L (0-33); Albumin Level 4.7 g/dL (3.5-5.2); Alkaline Phosphatase 54 U/L (35-105); Anion Gap 17.4 (5-19); Aspartate Amino Transferase 40 U/L (0-32); Blood Urea Nitrogen 11 mg/dL (6-20); Calcium 9.7 mg/dL (8.5-10.5); Carbon Dioxide 24 mmol/L (22-29); Chloride 104 mmol/L (98-107); Creatinine Clr Calc Pharmacy 117.4589; Globulin 3.3 g/dL (1.3-4.6); Glucose 130 mg/dL (65-115); Osmolality Calculated 293 mOsm/kg (285-295); Potassium 4.4 mmol/L (3.5-5.1); Sodium 141 mmol/L (136-145); Total Bilirubin 0.2 mg/dL (0.15-1.2)
[2024-11-16 19:13] LABS: Troponin(5th) Baseline < 6 ng/L (0-10)
[2024-11-16 19:20] LABS: NT Pro B Type Natriuretic Pept 40 pg/mL (0-125)
[2024-11-16] MEDS: sodium chloride 0.9% 500 ML IV (19:24)
[2024-11-16] MEDS: ondansetron 2 mg/ML SDV 2 mL 4 MG IVP (19:24)
[2024-11-16] MEDS: meclizine 25 mg tablet 50 MG PO (19:24)
[2024-11-16 19:33] VITALS: BP 151/95; PULSE 82; RESP 16; O2SAT 97
[2024-11-16 19:53] LABS: Bilirubin Urine Negative (Negative); Blood Urine Negative (Negative); Glucose Urine UA 2+ (Normal); Ketones Urine Negative (Negative); Leukocyte Esterase Urine Negative (Negative); Nitrate Urine Negative (Negative); Protein Urine Negative (Negative); Urine Appearance Clear (CLEAR); Urine Color Yellow (Yellow); Urobilinogen Urine 0.2 mg/dL (Negative)
[2024-11-16 19:59] LABS: Amphetamines Screen Urine Negative (Negative); Barbiturates Screen Urine Negative (Negative); Benzodiazepines Screen Urine Negative (Negative); Cocaine Screen Urine Negative (Negative); Opiate Screen Urine Negative (Negative); PCP Screen Urine Negative (Negative); THC Screen Urine Negative (Negative)
[2024-11-16 20:05] LABS: Specific Gravity, Urine 1.036 (1.005-1.030)
[2024-11-16 20:09] LABS: Add Urine Microscopic? YES; Bacteria Urine None Seen /hpf; Hyaline Casts Urine 0-4 /lpf; RBC Urine 0-2 /hpf (0-2); Squamous Epithelial Cell Urine 0-5 /hpf (0-5); WBC Urine 0-5 /hpf (0-5)
[2024-11-16 20:10] VITALS: BP 147/94; O2SAT 96
[2024-11-16 20:33] VITALS: BP 142/99; O2SAT 96
[2024-11-16 20:39] LABS: Troponin 5 2HR Delta 0.00001 ABS# (0-10)
[2024-11-16 21:32] VITALS: BP 152/93; O2SAT 96
[2024-11-16] MEDS: hydroCHLOROthiazide 25 mg Tablet PO (21:47)
[2024-11-16 22:01] VITALS: BP 152/93; PULSE 88; RESP 16; O2SAT 99
== END 2024-11-16 22:02 | disposition home or self-care (01) ==
PROVIDERS: Emergency Provider Emergency Medicine; PCP Family Medicine
DX: I10 Essential (primary) hypertension (principal); R07.9 Chest pain, unspecified; Z79.84 Long term (current) use of oral hypoglycemic drugs; Z79.82 Long term (current) use of aspirin; E11.9 Type 2 diabetes mellitus without complications
CPT/HCPCS: 36415; 70450; 71046; 80053; 80306; 81001; 83880; 84484; 85025; 86140; 93005; 96374; 99285; J2405; J7040; J8597; J9999

== ENCOUNTER → 2024-12-17 08:58 | Outpatient (BNVA) | payer OTHER, SELFPAY | PROVIDERS: PCP Family Medicine; Visit Provider Family Medicine | DX: E11.9 Type 2 diabetes mellitus without complications (principal) | CPT/HCPCS: 83036 ==

== ENCOUNTER 2025-08-27 07:38 | Outpatient (CLI) | payer OTHER, BC, SELFPAY ==
[2025-08-27 08:05] LABS: Hematocrit 36.6 % (36-47); Hemoglobin 12.10 g/dL (11.27-16.99); Mean Corpuscular HGB Conc 33.1 g/dL (30-55); Mean Corpuscular Hemoglobin 30.8 pg (27-33); Mean Corpuscular Volume 93.1 fl (85-98); Nucleated Red Blood Cells % 0 %; Platelet Count 250 10^3/cmm (157-399); Red Blood Count 3.93 10^6/uL (3.85-5.65); White Blood Count 5.67 10^3/uL (3.29-11.43)
[2025-08-27 08:20] LABS: Estmated Average Glucose 123; Hemoglobin A1C 5.9 % (4.0-6.0)
[2025-08-27 08:48] LABS: Alanine Aminotransferase 31 U/L (0-33); Albumin Level 4.3 g/dL (3.5-5.2); Alkaline Phosphatase 34 U/L (35-105); Anion Gap 16.4 (5-19); Aspartate Amino Transferase 29 U/L (0-32); Blood Urea Nitrogen 15 mg/dL (6-20); Calcium 9.6 mg/dL (8.5-10.5); Carbon Dioxide 26 mmol/L (22-29); Chloride 99 mmol/L (98-107); Cholesterol 115 mg/dL (0-200); Globulin 3.0 g/dL (1.3-4.6); Glucose 137 mg/dL (65-115); HDL Cholesterol 42 mg/dL (60-100); Osmolality Calculated 289 mOsm/kg (285-295); Potassium 3.4 mmol/L (3.5-5.1); Sodium 138 mmol/L (136-145); Thyroid Stimulating Hormone 3.15 uIU/mL (0.27-4.20); Total Protein 7.3 g/dL (6.6-8.7); Triglycerides 128 mg/dL (0-150); Vitamin B12 325 pg/mL (232-1245)
== END 2025-08-27 07:39 | disposition home or self-care (01) ==
PROVIDERS: PCP Family Medicine; Visit Provider Family Medicine
DX: E55.9 Vitamin D deficiency, unspecified (principal); I10 Essential (primary) hypertension; E78.2 Mixed hyperlipidemia; E11.9 Type 2 diabetes mellitus without complications; R79.89 Other specified abnormal findings of blood chemistry
CPT/HCPCS: 36415; 80053; 80061; 82306; 82607; 83036; 84443; 85025